=== PATIENT | female | born 1975 | race Caucasian/White ===

== ENCOUNTER 2024-10-23 22:29 | Emergency (ER) | payer SELFPAY ==
--- NOTE | 2024-10-23 22:30 | RT.EKG_ITS ---
APPROVED REPORT Exam: Resting ECG Reason for Exam: anxiety Patient Location: E HR:81 bpm ECG Measurements Heart Rate 81 AXIS VA 147 P 36 QRSd 93 QRS 3 QT 367 T 30 QTc 427 Conclusion Sinus rhythm...normal P axis, V-rate 60- 99 I have reviewed and interpreted ECG and agree with software generated interpretation.
[2024-10-23 22:31] VITALS: BP 153/101; PULSE 91; RESP 18; TEMP 36; O2SAT 96
[2024-10-23 22:36] VITALS: RESP 18
--- NOTE | 2024-10-23 22:42 | ED.GENADUL_ITS ---
"Discharge Plan Disposition Patient Disposition: Home Condition: Good Discharge Details Clinical Impression: Chest discomfort, Anxiety Primary Care Provider: Gordy De Oliveira ED Provider: Kimo Henry Home Meds and New Rx's Prescriptions: No Action levothyroxine 75 mcg capsule 75 mcg PO DAILY Discharge Instructions Instructions: Chest Pain, Adult ED, Anxiety, Adult ED Additional Instructions: At this time your workup has returned reassuring. There is no evidence to suggest blood clot, heart attack, or other significant abnormality. My concern is there may be a component of anxiety that may be playing into some of your symptoms secondary to the significant amount of stress that you have undergone over the last few months. As we discussed together, please take the Ativan that you have been given this evening if you feel continued anxiety. Please follow- up closely with your counselors and support. Your urinalysis did show questionable very mild early infection. Since you have no symptoms otherwise, we will hold off on treatment for the meantime. If the culture results of your urine come back positive we will contact you for antibiotic treatment If you notice any worsening of your symptoms, or any new symptoms such as vomiting, diarrhea, fever, chills, shortness of breath, chest pain, numbness, weakness, or fainting , please return immediately to the emergency department for reevaluation. Please follow up with your primary care provider as soon as possible for reassessment and reevaluation. As always, it was a pleasure participating in your medical care today. Referrals: Gordy De Oliveira [Primary Care Provider] - [facility] General Date/Time Provider Initiated Documentation: 10/23/24 22:32 . [facility] Narrative: This is a pleasant 49-year-old female with a past medical history of hypothyroidism who presents today for feeling unwell. Patient states that she is felt bad today, she attributes associated symptoms of mild chest tightness for the last 30 minutes, increased and heightened emotions throughout the day, feeling quite anxious and nauseous without any vomiting or diarrhea. She does admit that her left her a few months ago. She denies any stressful events specifically today though. She did increase her levothyroxine from 50 mcg to 75 mcg in the last few days. She does feel slightly short of breath. She denies any arm neck or shoulder pain. She denies any tearing or ripping sensation. Denies PE risk factors such as recent long car rides, immobilization, recent surgery, prior history of DVT or PE, family history of PE or DVT, morbid obesity, exogenous estrogen and smoking, hemoptysis, history of cancer. She admits to a sensation that she is going to have to have a bowel movement but denies any bowel movements or diarrhea. She denies any IV or illicit drug use. She denies any alcohol use. No other complaints at this time. Related Data Home Medications ?Medication ?Instructions ?Recorded ?Confirmed levothyroxine 75 mcg capsule 75 mcg PO DAILY 10/23/24 10/23/24 Allergies Allergy/AdvReac Type Severity Reaction Status Date / Time diazepam (From Valium) AdvReac Mild Hallucinate Verified 10/23/24 22:41 General Stated Complaint: Anxiety GALO: 3 Exam Narrative Exam Narrative: 1.Const: Well-nourished, Well-developed, appearing stated age 2.Eyes: PERRL, no conjunctival injection, and symmetrical lids. 3.ENT: Atraumatic external nose and ears. Moist MM. Neck: Symmetric, trachea midline, No thyromegaly. 4.CVS: +S1/S2, Peripheral pulses 2+ and equal in all extremities. Brisk capillary refill in all extremities. 5.RESP: Unlabored respiratory effort. Clear to auscultation bilaterally. No wheezes rales or rhonchi 6.GI: Soft, Nontender/Nondistended, No hepatosplenomegaly. No guarding or rebound. 7.MSK: Normocephalic/Atraumatic, Extremities w/o deformity or ttp No cyanosis or clubbing, Normal movement of all extremities 8.Skin: Warm, Dry. No rashes or lesions. 9.Neuro: weekday babysitter II-XII grossly intact. Sensation grossly intact, no focal neurologic deficits. 10.Psych: (AAO) x3. Appropriate mood and affect Course Vital Signs Vital signs: Vital Signs Temperature 36.0 C L 10/23/24 22:31 Pulse 91 H 10/23/24 22:31 Respiratory Rate 18 10/23/24 22:31 Blood Pressure 153/101 H 10/23/24 22:31 Pulse Oximetry 96 10/23/24 22:31 Temperature 36.0 C L 10/23/24 22:31 Temperature Source Temporal Artery Scan 10/23/24 22:31 Pulse 91 H 10/23/24 22:31 Respiratory Rate 18 10/23/24 22:36 Respiratory Effort Normal, Non-Labored 10/23/24 22:36 Respiratory Depth Normal 10/23/24 22:36 Respiratory Pattern Normal 10/23/24 22:36 Blood Pressure 153/101 H 10/23/24 22:31 Blood Pressure Position Sitting 10/23/24 22:31 Pulse Oximetry 96 10/23/24 22:31 Oxygen Delivery Method Room Air 10/23/24 22:31 Oxygen Flow Rate 0 10/23/24 22:31 Medical Decision Making This is a pleasant 49-year-old female with a past medical history of hypothyroidism who presents today for feeling unwell. Patient states that she is felt bad today, she attributes associated symptoms of mild chest tightness for the last 30 minutes, increased and heightened emotions throughout the day, feeling quite anxious and nauseous without any vomiting or diarrhea. She does admit that her left her a few months ago. She denies any stressful events specifically today though. She did increase her levothyroxine from 50 mcg to 75 mcg in the last few days. She does feel slightly short of breath. She denies any arm neck or shoulder pain. She denies any tearing or ripping sensation. Denies PE risk factors such as recent long car rides, immobilization, recent surgery, prior history of DVT or PE, family history of PE or DVT, morbid obesity, exogenous estrogen and smoking, hemoptysis, history of cancer. She admits to a sensation that she is going to have to have a bowel movement but denies any bowel movements or diarrhea. She denies any IV or illicit drug use. She denies any alcohol use. No other complaints at this time. Exam demonstrates an anxious, tearful female, no acute distress though. Radial pulses are equal, lungs are clear, abdomen is nontender. She is slightly hypertensive, heart rate is in the 90s. Differential is broad. Cardiac etiology or ACS unlikely. EKG shows no evidence of STEMI or significant abnormality. She does have some shortness of breath and a mild pleuritic component, so PE is on the differential but also low likelihood given her risk factors. No tearing or ripping sensation to suggest dissection. No fever to suggest infection. Symptoms may certainly be related to Takotsubo's cardiomyopathy but this is unlikely given her EKG. No ST elevations. High likelihood that her symptoms may be secondary to a component of anxiety or her increase in her levothyroxine. We will evaluate for concerning etiologies gently rehydrate, monitor closely and reassess. Patient has declined any anxiolytics at this time. 12:39 AM Laboratory workup has returned notably reassuring. Patient's TSH is only minimally elevated, free T4 is therapeutic. Symptoms inconsistent with thyroid storm or thyrotoxicosis or myxedema coma. No significant white count or bandemia. Initial and repeat troponin are normal, D-dimer is normal with no suggestion of PE clinically. Chest x-ray is read as negative for acute process per radiology. Vital signs are stable however the patient does still feel quite anxious. I have again offered her small dose of anxiolytics which she has declined. With no evidence of cardiac etiology, PE, widened mediastinum to suggest dissection, electrolyte abnormality or other atypical concern otherwise I do not see any other indication for further emergent workup. Patient does have trace leuk esterase and 3-5 WBCs in her urine, however she is asymptomatic with no dysuria or frequency. We will send for urine culture and hold on any antibiotic treatment at this time. I had a long discussion with the patient regarding a potential single small dose of anxiolytics for home, eventually the patient consented. She will be given 1 dose of a single milligram tablet of Ativan for home use for her current symptoms of anxiety. Recommend close follow-up with her PCP and counselors. Patient understands. Patient will be discharged home. I have extensively reviewed the treatment plan and discharge instructions with the patient and their family. I have addressed all patient concerns at this time. The patient and family was made aware of what symptoms to monitor for that would warrant a return to the emergency department. Discussed the plan with the patient and family, they demonstrate verbal understanding and agreement with our assessment and plan at this time. The documentation in this chart was dictated using [employer] dictation software. Please excuse any dictation errors. FINDINGS: Lungs: No acute infiltrates. Pleural spaces: Unremarkable. No pleural effusion. No pneumothorax. Heart/Mediastinum: Unremarkable. No cardiomegaly. Bones/joints: Silva rods identified in the thoracic spine. IMPRESSION: No acute infiltrates. Thank you for allowing us to participate in the care of your patient. Dictated and Authenticated by: Alexis Martinez MD 10/24/2024 12:21 AM Eastern Time ([place] & [place]) Quality:SDOH Health Related Social Needs: No Data to Display PFSH All Active Problems (Updated 10/24/24 @ 00:37 by Kimo Henry DO) Anxiety (Chronic) Chest discomfort (Acute) Social History Smoking/Tobacco Use Status: Never Smoking risk assessment performed?: Yes Alcohol Intake: never Drug use: Never Substance use type: does not use Housing: house Do you feel safe at home: Yes Do you feel safe in your relationship?: Yes"
[2024-10-23] MEDS: Ketorolac 15 MG/ML VIAL IVP (23:01)
[2024-10-23] MEDS: Normal Saline 1,000 ML 1000 ML IV (23:01)
[2024-10-23 23:04] LABS: Abs Immature Grans 0.01 10^3/uL (0.0-0.06); Absolute Basophil Count 0.04 10^3/uL (0.0-0.2); Absolute Lymphocyte Count 0.97 10^3/uL (1.2-3.4); Absolute Monocyte Count 0.39 10^3/uL (0.1-0.8); Basophils % 0.7 %; Eosinophils % 1.8 %; HCT 41.1 % (36.0-46.0); HGB 13.8 g/dL (11.2-15.7); Immature Grans % 0.2 %; Lymphocytes % 17.9 %; MCHC 33.6 % (32.0-36.0); MCV 89 fL (80-95); MPV 11.9 fL (8.0-11.0); Monocytes % 7.2 %; Neutrophils % 72.2 %; Platelet Count 142 10^3/uL (130-400); RDW 13.4 % (11.7-14.6); RDW-SD 44.2 fL; WBC 5.41 10^3/uL (4.4-10.8)
[2024-10-23 23:17] LABS: PTT Activated 26.8 sec (20.6-30.2); Prothrombin Time 10.3 sec (9.1-11.1)
[2024-10-23 23:26] LABS: ALT 29 U/L (14-59); AST 18 U/L (15-37); Albumin 4.5 g/dL (3.4-5.0); Alkaline Phosphatase 81 U/L (46-116); Anion Gap 9.7 mmol/L (3-11); BUN 8 mg/dL (7-18); Bilirubin, Total 0.7 mg/dL (0.2-1.0); CO2 30.3 mmol/L (21.0-32.0); CREATININE 0.7 mg/dL (0.55-1.02); Calcium 9.8 mg/dL (8.5-10.1); Chloride 102 mmol/L (98-107); Glucose 108 mg/dL (74-106); Potassium 3.7 mmol/L (3.5-5.1); Sodium 142 mmol/L (136-145); Total Protein 8.1 g/dL (6.4-8.2)
[2024-10-23 23:28] LABS: D-Dimer 317 ng/mlFEU (<500)
[2024-10-23 23:30] LABS: Troponin I < 4 ng/L (<or=51)
[2024-10-23 23:40] LABS: Bilirubin Negative (Negative); Blood Negative (Negative); Clarity Clear (Clear); Glucose Negative (Negative); Ketones Negative (Negative); Leukocyte Esterase Trace (Negative); Nitrite Negative (Negative); Urobilinogen 0.2 mg/dL (Up to 0.2)
[2024-10-23 23:45] LABS: Bacteria Few HPF (Negative); C & S Indicated? No; Casts Negative LPF (Negative); Crystals Negative HPF (Negative); Epithelial Cells Few HPF (Negative); Mucus Negative (Negative); RBC Negative HPF (0-2)
--- NOTE | 2024-10-23 23:45 | DI.RAD_ITS ---
Exam(s) XR PORTABLE CHEST AP EXAM: XR PORTABLE CHEST AP CLINICAL HISTORY: chest pain and SOB TECHNIQUE: 2D digital imaging was performed. COMPARISON: No exams were available for comparison FINDINGS: LUNGS: Clear. No pleural abnormality seen. HEART: Normal size. AORTA: Normal diameter. BONES: Rods in spine. Soft tissues: Unremarkable. IMPRESSION: No acute findings. DATA REPOSITORY: RADIATION DOSE DELIVERED:
[2024-10-23 23:46] LABS: FREE T4 1.15 ng/dL (0.76-1.46)
[2024-10-24 00:21] LABS: Troponin I 4 ng/L (<or=51)
--- NOTE | 2024-10-24 00:22 | DI.VRAD_ITS ---
PROCEDURE INFORMATION: Exam: XR Chest Exam date and time: 10/24/2024 12:06 AM Age: 49 years old Clinical indication: Shortness of breath and other: Cp; Prior surgery; Surgery date: 6+ months; Surgery type: Back surgery; Cp, SOB TECHNIQUE: Imaging protocol: Radiologic exam of the chest. Views: 1 view. COMPARISON: No relevant prior studies available. FINDINGS: Lungs: No acute infiltrates. Pleural spaces: Unremarkable. No pleural effusion. No pneumothorax. Heart/Mediastinum: Unremarkable. No cardiomegaly. Bones/joints: Silva rods identified in the thoracic spine. IMPRESSION: No acute infiltrates. Dictated and Authenticated by: Alexis Martinez MD. Orderin Elaine Malin MD
[2024-10-24 00:37] VITALS: PULSE 86; O2SAT 96
[2024-10-24 00:38] VITALS: BP 121/80; PULSE 86; O2SAT 96
[2024-10-24 00:39] VITALS: BP 121/80; PULSE 86; RESP 18; TEMP 36.3; O2SAT 96
[2024-10-24] MEDS: LORazepam 1 MG TAB PO (00:44)
== END 2024-10-24 00:39 | disposition home or self-care (01) ==
PROVIDERS: Emergency Provider Student in an Organized Health Care Education/Training Program; PCP Obstetrics & Gynecology
DX: F41.9 Anxiety disorder, unspecified (principal); R07.89 Other chest pain
CPT/HCPCS: 36415; 80053; 93005; 96361; 96374; 99285; 71045; 81003; 81015; 84439; 84443; 84484; 85025; 85379; 85610; 85730; 87086; 93010; 99284; J1885